=== PATIENT | male | born 1935 | race Caucasian/White ===

== ENCOUNTER 2020-06-16 20:28 | Inpatient (IN) | payer MEDICARE ==
[~2020-06-16 20:28] MED LIST: Iopamidol-370 76% 500 ML 1 ML ONE
[2020-06-16] MEDS ORDERED: Enoxaparin Sodium 100 MG/ML SYRINGE ONE (21:52)
[2020-06-16] MEDS ORDERED: Enoxaparin Sodium 80 MG/0.8 ML SYRINGE ONE (21:55)
[2020-06-17] MEDS ORDERED: Ondansetron PF 4 MG/2 ML Vial IVP PRN (00:48)
[2020-06-17] MEDS ORDERED: Ondansetron ODT 4 MG TAB PO PRN (00:48)
[2020-06-17] MEDS ORDERED: HYDROcodone/Acetaminophen 5/325 mg Tablet PO PRN (00:48)
[2020-06-17] MEDS ORDERED: Acetaminophen 325 MG TAB PO PRN (00:48)
[2020-06-17 00:59] LABS: Critical Call Chem Troponin I RESULT DECREASING; Troponin I 0.568 ng/mL (< 0.028)
[2020-06-17 01:28] VITALS: BMI 21.6
[2020-06-17 06:05] LABS: Critical Call Chem Troponin I RESULT DECREASING; Troponin I 0.558 ng/mL (< 0.028)
[2020-06-17 07:00] LABS: Anion Gap 15 mmol/L (10-20); BUN (Urea Nitrogen) 11 mg/dL (8.4-25.7); Calc. Creatinine Clearance 67 mL/min (70-130); Carbon Dioxide 22 mmol/L (23-31); Chloride 106 mmol/L (98-107); Glucose 86 mg/dL (83-110); Magnesium 2.2 mg/dL (1.6-2.6); Potassium 3.5 mmol/L (3.5-5.1); Sodium 139 mmol/L (136-145)
[2020-06-17] MEDS ORDERED: Enoxaparin Sodium 80 MG/0.8 ML SYRINGE SC SCH (09:00)
[2020-06-17] MEDS: Enoxaparin Sodium 80 MG/0.8 ML SYRINGE SC SCH ×2 (09:18→20:33)
[2020-06-17] MEDS ORDERED: Iopamidol-370 76% 500 ML 1 ML ONE (12:59)
[2020-06-17] MEDS ORDERED: Amlodipine 10 MG TAB PO SCH (15:15)
[2020-06-18] MEDS: Enoxaparin Sodium 80 MG/0.8 ML SYRINGE SC SCH (08:44)
[2020-06-18] MEDS ORDERED: Ramipril 5 MG CAP PO SCH (09:00)
[2020-06-18] MEDS ORDERED: Amlodipine 10 MG TAB PO SCH (09:00)
[2020-06-18 11:45] VITALS: BP 153/78; TEMP 97.8
== END 2020-06-18 16:42 | disposition home or self-care (01) | DRG 438 ==
LOC: ERS 20:28 → 2SE 21:53
PROVIDERS: ADMIT Internal Medicine; ATTEND Internal Medicine
DX: K86.2 Cyst of pancreas (principal); I21.A1 Myocardial infarction type 2; E78.5 Hyperlipidemia, unspecified; I10 Essential (primary) hypertension; R00.1 Bradycardia, unspecified; I25.10 Atherosclerotic heart disease of native coronary artery without angina pectoris; I08.1 Rheumatic disorders of both mitral and tricuspid valves; F03.90 Unspecified dementia, unspecified severity, without behavioral disturbance, psychotic disturbance, mood disturbance, and anxiety; I73.9 Peripheral vascular disease, unspecified; Z66 Do not resuscitate; Z96.651 Presence of right artificial knee joint; M48.9 Spondylopathy, unspecified; Z88.8 Allergy status to other drugs, medicaments and biological substances; Z79.82 Long term (current) use of aspirin; Z79.02 Long term (current) use of antithrombotics/antiplatelets; Z95.1 Presence of aortocoronary bypass graft; Z91.011 Allergy to milk products
CPT/HCPCS: 36415; 71275; 74178; 80048; 82550; 83735; 93005; 93306; 96372; J1650; Q9967